=== PATIENT | female | born 1965 | race Caucasian/White ===

== ENCOUNTER → 2016-09-25 | Outpatient (CLI) | payer BC ==
--- NOTE | 2016-09-25 16:58 | DIAGNOSTIC IMAGING REPORT ---
KUB HISTORY: NEPHROLITHIASIS COMPARISON: Renal ultrasound 02/21/1613. FINDINGS: The bowel gas pattern is unremarkable. There are no dilated loops of small bowel to suggest an obstruction. Cholecystectomy. Calcifications in the deep pelvis are nonspecific but favor phleboliths. Multiple punctate bilateral renal calculi. There is a 4 mm nonspecific calcification superior to the left L2 transverse process. This could represent a UPJ stone. No pneumoperitoneum or pneumatosis. IMPRESSION: 1. Bilateral nephrolithiasis. 2. A nonspecific 4 mm calcification superior to the left transverse process. This could represent a UPJ stone. Electronically signed by: Jeremy Padilla M.D. 09/25/2016 4:55 PM Dictated Date/Time: 09/25/2016 4:54 PM
== END | disposition home or self-care (01) ==
LOC: C.RAD 16:08
PROVIDERS: ATTEND Urology
DX: N20.0 Calculus of kidney (principal)

== ENCOUNTER → 2017-03-28 | Outpatient (CLI) | payer BC ==
--- NOTE | 2017-03-28 17:42 | DIAGNOSTIC IMAGING REPORT ---
KUB HISTORY: CALCULUS OF KIDNEY COMPARISON: KUB 09/25/2016. FINDINGS: The bowel gas pattern is unremarkable. There are no dilated loops of small bowel to suggest an obstruction. Cholecystectomy. Stable calcifications in the deep pelvis are nonspecific but favor phleboliths. Punctate bilateral renal calculi are again noted. These are not significantly changed. No definite ureteral calculi identified. No pneumoperitoneum or pneumatosis. IMPRESSION: Stable bilateral nephrolithiasis. No ureteral calculi identified. Electronically signed by: Jeremy Padilla M.D. 03/28/2017 5:40 PM Dictated Date/Time: 03/28/2017 5:39 PM
== END | disposition home or self-care (01) ==
LOC: C.RAD 15:41
PROVIDERS: ATTEND Urology
DX: N20.0 Calculus of kidney (principal)